=== PATIENT | female | born 1965 | race African-American/Black ===

== ENCOUNTER 2017-04-02 15:35 | Emergency (ER) | payer BC ==
--- NOTE | ~2017-04-02 | EKG ---
PATIENT: DIANNA RAPP UNIT #: [id number] Ventricular Rate: 104 BPM Atrial Rate: 104 BPM P-R Interval: 136 ms QRS Duration: 74 ms Q-T Interval: 362 ms QTC Calculation(Bezet): 476 ms P Sharon: 48 degrees Calculated R Sharon: 63 degrees Calculated T Sharon: 29 degrees Diagnosis Line: Sinus tachycardia Diagnosis Line: Moderate voltage criteria for LVH, may be normal Diagnosis Line: variant Diagnosis Line: T wave abnormality, consider inferior ischemia Diagnosis Line: Abnormal ECG Diagnosis Line: No previous ECGs available Diagnosis Line: Confirmed by ARISTIDES MIRAMONTES MD ([id number]) on Diagnosis Line: 04/14/2017 8:26:29 AM INTERPRETING MD: FE EVANS
--- NOTE | ~2017-04-02 | CT4 ---
[facility] A Service of [facility] & [facility] RADIOLOGY TEXT RESULTS PATIENT: DIANNA RAPP LOCATION: SED : 65 UNIT #: [id number] AGE: [address]: Maximo Rivers MD SEX: F ORDER DR: [id number] [address] [address] [id number] MR#: [id number] Acc #: [id number] NAME: DIANNA RAPP : 1965 SEX: F STUDY DATE/TIME: 04/02/2017 16:35 UNIT: SED ROOM: STUDY DESCRIPTION: CT Abd and Pelv Wo Cont Attending Physician: Maximo Rivers M.D. Ordering Physician: Maximo Rivers M.D. MEDICAL IMAGING REPORT This report is preliminary unless electronic signature is present. EXAM CT abdomen and pelvis 04/02/2017 HISTORY Vomiting blood prior to arrival EGD colonoscopy. Stomach biopsy at [place] today. Abdomen pain. FINDINGS CT abdomen pelvis performed without administration of oral or intravascular contrast. This CT exam was performed with one or more of the following radiation dose reduction techniques: automatic control, adjustment of mA and/or kV according to patient size, and iterative reconstruction. No prior imaging at this institution. Centrilobular emphysema at the lung bases. No acute abnormality at lung bases. Inferior heart pericardium unremarkable. 8-9 mm cyst upper liver. No suspicious hepatic finding. Spleen, pancreas, adrenal glands unremarkable. Status post cholecystectomy. No biliary obstruction. Kidneys unremarkable. CT PELVIS: No inguinal adenopathy. Study degraded by streak artifact from monitoring leads and wires overlying the patient and not removed prior to study. No free fluid in pelvis. Uterus and adnexal regions remarkable. There appear to be surgical clips or the chain sutures in the deep pelvis. No pelvic or retroperitoneal adenopathy. Some haziness in the fat adjacent to the distal esophagus but no air or fluid. Correlate with any clinical signs or symptoms of esophageal inflammation. The stomach contains food debris. Patient is status post some form of gastric bypass. There is some relatively high-density material within the stomach. This may be a reflection of the patient's ingestion history. Given the history of hemoptysis, products of hemorrhage not excluded. I see no layering hematocrit level. There is some high-density material in proximal small bowel as well. Again given the patient's history, this could be a reflection of products of hemorrhage or simply reflect STS. [facility] A Service of [facility] & [facility] RADIOLOGY TEXT RESULTS PATIENT: DIANNA RAPP LOCATION: SED : 65 UNIT #: [id number] AGE: [address]: Maximo Rivers MD SEX: F ORDER DR: ingestion history. There is mild dilatation of a small bowel loop at the level of a surgical anastomosis. The small bowel loop measures about 3.7 cm in diameter. This probably reflects localized diminished esophageal contractility due to surgical intervention. There is no evidence of small bowel obstruction. Air and fluid seen throughout the small bowel to colon. The appendix is not clearly identified but no right lower quadrant or pericecal inflammatory changes seen. The colon shows no definite acute abnormality. Aorta appears normal in caliber. No free air. No intraabdominal or pelvic fluid collection. Bony structures remarkable. IMPRESSION 1. Study somewhat limited in the absence of both vascular and oral contrast. The patient is status post some form of gastric bypass procedure., there is food debris within the stomach. There is some subtle high-density material within the stomach which may simply represent the patient's ingestion history. Given history of stomach biopsy today and hematemesis, products of hemorrhage in the stomach not excluded. No layering hematocrit level is seen. 2. There is some high-density material in proximal small bowel as well. Differential diagnosis remains the same: Ingested material versus products of hemorrhage. Again no layering hematocrit level. 3. Mild localized dilatation of a small bowel and at level of surgical chain suture line. This is probably a localized area of diminished small bowel contractility secondary to prior operative intervention. There is no indication of small bowel obstruction. 4. Status post cholecystectomy. 5. Appendix not identified. No pericecal or right lower quadrant inflammatory changes seen. 6. There are surgical clips or chain sutures in the deep pelvis as well. Exact etiology unclear. 7. No free air. No intraabdominal or pelvic fluid collection. 8. Lung bases suggest centrilobular emphysema. Dictated by... Min Potts M.D. THIS IS AN ELECTRONICALLY VERIFIED REPORT Min Potts M.D. at 04/05/2017 8:13 AM JEANNETTE/hao TD: 04/02/2017 21:39 JOB #: [id number] MEDICAL IMAGING REPORT Page 1 of 1
[2017-04-02] MEDS ORDERED: BUMEX2 MG PO (15:43)
[2017-04-02] MEDS ORDERED: CALTRATE 600+D PO (15:43)
[2017-04-02] MEDS ORDERED: CLONIDINE PO (15:44)
[2017-04-02] MEDS ORDERED: HYDROCODON-ACE1 EAC7 PO (15:44)
[2017-04-02] MEDS ORDERED: IRON134 MG PO (15:44)
[2017-04-02] MEDS ORDERED: PHENERGAN PO (15:45)
[2017-04-02] MEDS ORDERED: TOPROL XL PO (15:45)
[2017-04-02] MEDS ORDERED: K-DUR20 ME1 PO (15:45)
[2017-04-02] MEDS ORDERED: OMEPRAZOLE20 M2 PO (15:45)
[2017-04-02] MEDS ORDERED: AMBIEN10 MG PO (15:46)
[2017-04-02] MEDS ORDERED: TOPAMAX PO (15:46)
[2017-04-02 16:02] LABS: BASOPHIL# 0.1 X10e3 (0-0.3); BASOPHIL% 0.9 % (0-2.5); EOSINOPHIL# 0.1 X10e3 (0-0.7); EOSINOPHIL% 0.8 % (0.0-7.0); HEMOGLOBIN 12.2 gm/dL (12.0-16.0); LYMPHOCYTE# 2.5 X10e3 (1.0-3.5); LYMPHOCYTE% 36.8 % (17.0-45.0); MEAN CELL VOLUME 71.5 FL (83-96); MEAN CORPUSCULAR HEMOGLOBIN 22.4 PG (28-34); MEAN CORPUSCULAR HGB CONC 31.3 g/dL (30-36); MEAN PLATELET VOLUME 6.8 FL (6.5-11.5); MONOCYTE# 0.4 X10e3 (0-1.0); MONOCYTE% 6.1 % (3.0-12.0); NEUTROPHIL# 3.7 X10e3 (1.5-7.1); NEUTROPHIL% 55.4 % (40-75); PLATELET COUNT 365 X10e3 (140-420); RED BLOOD COUNT 5.45 X10e (3.90-5.30); RED CELL DISTRIBUTION WIDTH 15.2 % (11.0-15.5); WHITE BLOOD COUNT 6.7 X10e3 (4.0-10.5)
[2017-04-02 16:04] LABS: DIFF IND NO
[2017-04-02 16:21] LABS: ALBUMIN SERUM 4.2 g/dL (3.5-5.0); ALKALINE PHOSPHATASE 72 U/L (32-92); ALT (SGPT) 18 U/L (10-40); AST (SGOT) 26 U/L (10-42); BILIRUBIN,TOTAL 0.3 mg/dL (0.2-2.0); BLOOD UREA NITROGEN 30 mg/dL (9-23); BUN/CREATININE RATIO 27.27; CALCIUM SERUM 9.2 mg/dL (8.4-10.2); CARBON DIOXIDE 24 mmol/L (22-31); CHLORIDE 104 mmol/L (100-111); CREATININE SERUM 1.1 mg/dL (0.6-1.4); GLOM FILT RATE Estimated 67.3 mL/min (>60); GLUCOSE FASTING 103 mg/dL (70-110); POTASSIUM 3.2 mmol/L (3.5-5.1); PROTEIN TOTAL SERUM 7.6 g/dL (6.0-8.3); SODIUM 137 mmol/L (135-145)
[2017-04-02 16:29] LABS: BILIRUBIN, DIRECT <0.1 mg/dL (0.0-0.2); BILIRUBIN,INDIRECT 0.2 mg/dL (0.0-0.9)
[2017-04-02 16:35] LABS: PROTHROMBIN TIME (PATIENT) 11.6 SECONDS (9.5-12.4)
[2017-04-02 16:43] LABS: PARTIAL THROMBOPLASTIN TIME 28.3 SECONDS (25.6-38.1)
[2017-04-02 19:23] LABS: URINE SOURCE CLEAN CATCH
[2017-04-02 19:25] LABS: URINE APPEARANCE CLEAR; URINE BILIRUBIN NEG (NEG); URINE BLOOD NEG (NEG); URINE COLOR YELLOW; URINE GLUCOSE NEG (NORM); URINE KETONE NEG (NEG); URINE LEUKOCYTE ESTERASE TRACE (NEG); URINE NITRATE NEG (NEG); URINE PROTEIN NEG (NEG); URINE SPECIFIC GRAVITY 1.015 (1.003-1.035); URINE UROBILINOGEN 0.2 MG/DL (NORM)
[2017-04-02 19:26] LABS: MICRO INDICATED? YES
[2017-04-02 19:33] LABS: CULTURE INDICATED? NO; URINE BACTERIA NEG (NEG); URINE RBC 0-2 /[HPF] (0-2); URINE SQUAMOUS EPITHELIAL CELL OCCAS /[HPF]
== END 2017-04-02 21:59 ==
LOC: SED 15:35
PROVIDERS: Emergency Medicine
DX: K92.0 Hematemesis (principal); I10 Essential (primary) hypertension; Z91.040 Latex allergy status; Z79.899 Other long term (current) drug therapy
CPT/HCPCS: 36415; 74176; 80048; 80076; 81003; 83690; 85025; 85610; 85730; 86850; 86900; 86901; 93005; 96361; 96372; 96374; 96375; 99285; C9113; J0500; J2405; J2550